=== PATIENT | female | born 1965 | race Caucasian/White ===

== ENCOUNTER 2024-01-27 15:00 | Emergency (ER) | payer BC ==
[~2024-01-27] VITALS: Ht 154.9 cm; Wt 71.2 kg
[2024-01-27] MEDS: FAMOTIDINE/PF INJ 20 MG/2 ML VIAL IV ONE (15:30)
[2024-01-27] MEDS ORDERED: methylPREDNISolone SOD SUCC 125 MG/2ML VIAL ONE (15:32)
[2024-01-27] MEDS: diphenhydrAMINE HCL 50 MG/ML VIAL IV ONE (15:32)
[2024-01-27] MEDS ORDERED: FAMOTIDINE/PF INJ 20 MG/2 ML VIAL IV ONE (15:32)
[2024-01-27] MEDS ORDERED: diphenhydrAMINE HCL 50 MG/ML VIAL ONE (15:32)
[2024-01-27] MEDS: methylPREDNISolone SOD SUCC 125 MG/2ML VIAL IV ONE (15:32)
[2024-01-27] MEDS: IV NS 0.9% 1,000 ML BAG IV ONE (15:40)
[2024-01-27 15:42] VITALS: TEMP 98.4
[2024-01-27] MEDS ORDERED: DIPH25CA83 PO (16:30)
[2024-01-27] MEDS ORDERED: EPIN0.3P3 IM (16:30)
[2024-01-27] MEDS ORDERED: PRED20TA PO (16:30)
[2024-01-27] MEDS ORDERED: FAMO-131 PO (16:30)
[2024-01-27 17:09] VITALS: BP 129/77; O2SAT 97
== END 2024-01-27 17:09 | disposition home or self-care (01) ==
LOC: ER 16:12
DX: T78.01XA Anaphylactic reaction due to peanuts, initial encounter (principal); J45.909 Unspecified asthma, uncomplicated; Z91.010 Allergy to peanuts; Z88.0 Allergy status to penicillin; X58.XXXA Exposure to other specified factors, initial encounter
CPT/HCPCS: 99284; 96374; 96361; 96375 ×2; J1200; J3490; J2930; J7030; J2919